=== PATIENT | female | born 1970 | race Caucasian/White ===

== ENCOUNTER 2017-05-05 10:06 | Inpatient (IN) | payer OTHER ==
[~2017-05-05] VITALS: Ht 165.1 cm; Wt 78.0 kg
[2017-05-05 10:13] VITALS: BP 120/46; PULSE 88; RESP 22; O2SAT 98
--- NOTE | 2017-05-05 10:21 | ED.REPORT ---
HPI-Abd Pain F 40 and Over Date of Service May 05, 2017 ED Provider: Janes Garzon MD A 46 year old female presents to the ED complaining of diffuse abdominal pain that began 2 days ago. Patient has been taking oxycodone for post-op lumbar surgery pain (04/29). She was discharged on 05/02 in good condition. Recent associated symptoms include vomiting, hematemesis, and watery diarrhea. Her last episode of emesis was a few hours prior to arrival. The pain has become increasingly worse since initial onset. She denies fever, hematochezia or dysuria. Nursing Notes Stated Complaint: LOWER BACK PAIN Chief Complaint: Female Abdominal Pain Nursing Notes Reviewed: Yes Allergies: Coded Allergies: No Known Allergies (Unverified , 05/05/17) General Time Seen by MD: 10:09 Chief Complaint Abdominal pain Hx Obtained From: Patient Arrived By: Walk-in Sudden in Onset?: No Onset Occurred: 3 days ago Symptom Duration: Since onset Progression since Onset: Gradually worsening Location: : Diffuse Quality: Painful Radiation: : Does not radiate Severity: Current: Severe Severity: Maximum: Severe Associated with: Reports: Vomiting, Denies: Dysuria, Fever Pertinent Negative: Pt denies other symptoms Recent Healthcare: Recent doctor visit, Recent hospitalization Risk Factors )( AAA Risk Stratification Risk factors reviewed Past Medical History Past Medical History None reported. Past Surgical History L4-L5 surgery Smoking History Unknown if Ever Smoker Social History Other Social History: Good social support, Local resident Ambulatory Status Independent Review of Systems Constitutional: Denies: Fever GI: Reports: Abdominal pain, Diarrhea, Hematemesis, Vomiting, Denies: Hematochezia Female: Denies: Dysuria Complete sys rev & neg: except as marked. Physical Exam Vital Signs Vital Signs (First) Date Time Temp Pulse Resp B/P Pulse Ox O2 Delivery O2 Flow Rate FiO2 05/05/17 10:13 36.6 88 22 120/46 98 Room Air Initial VS: Reviewed Head / Eyes: Atraumatic, Normocephalic, PERRL Neck: Supple, Non-tender, Full range of motion Extremities: Vascular intact, Neuro intact, No swelling, No tenderness Skin: Warm, Dry, No cyanosis Neurologic: Alert, Oriented, Nonfocal General/Constitutional: Awake, Alert Distress / Hydration: Positive: Distress moderate Respiratory / Chest: Atraumatic, No respiratory distress Cardiovascular: Peripheral circulation NL, Pulses = bilaterally Abdomen: Atraumatic, Soft, No guarding Tenderness/Guarding/Rebound: Positive: Rebound localized, Tender diffuse Back: Atraumatic Interpretation & Diagnostics Lab Results Interpretation Result Diagram: 05/05/17 1000 05/05/17 1000 Test 05/05/17 10:00 05/05/17 11:13 White Blood Count 25.9th/mm3 (3.8-10.1) Red Blood Count 4.55mil/mm3 (3.90-5.20) Hemoglobin 13.5g/dL (12.0-15.6) Hematocrit 37.9% (35.0-46.0) Mean Corpuscular Volume 83.3fL (81-100) Mean Corpuscular Hemoglobin 29.7pg (27.0-35.0) Mean Corpuscular Hemoglobin Concent 35.6% (32.0-37.0) Red Cell Distribution Width 14.0% (12.3-15.4) Platelet Count 453bil/L (150-400) Neutrophils (%) (Auto) 79.6% (40-74) Lymphocytes (%) (Auto) 9.5% (14-46) Monocytes (%) (Auto) 10.4% (4-12) Eosinophils (%) (Auto) 0% (0-5) Basophils (%) (Auto) 0.1% (0-3) Sodium Level 136mEq/L (134-144) Potassium Level 3.5mEq/L (3.5-5.2) Chloride Level 92mEq/L (97-108) Carbon Dioxide Level 22mmol/L (18-29) Blood Urea Nitrogen 23mg/dL (6-24) Creatinine 0.78mg/dL (0.57-1.00) Estimat Glomerular Filtration Rate 113mL/min (>59) Glucose Level 136mg/dL (60-99) Calcium Level 9.5mg/dL (8.5-10.1) Magnesium Level 1.8mg/dL (1.6-2.6) Total Bilirubin 0.7mg/dL (0.0-1.2) Aspartate Amino Transf (AST/SGOT) 20U/L (0-50) Alanine Aminotransferase (ALT/SGPT) 28U/L (0-32) Alkaline Phosphatase 80U/L (25-150) Total Protein 8.1g/dL (6.4-8.4) Albumin 4.2g/dL (3.4-5.0) Lipase 18U/L (13-60) Lactic Acid Level 1.3mmol/L (0.4-2.0) CT Abd / Pelvis Interpretation IMPRESSION: 1. Segmental of thickening of the colon involving the distal transverse colon, splenic flexure and proximal descending colon consistent with colitis. 2. Diverticulosis. No evidence for acute diverticulitis. 3. Small indeterminate hepatic hypodensities are present, probably cysts. Dictated by: Beatrice Bang M.D. on 05/05/2017 at 11:42 Study type: Abdominal CT IV contrast, Abdom CT oral contrast Interpretation / Wet Read by: Interpret - Radiologist Re-Eval/Medical Decision Med Decision/Clinical Course 46-year-old female who is one-week status post L3-L4 surgery presenting with nausea vomiting diarrhea and abdominal pain. CT confirms extensive colitis. White blood cell count is 27,000. Her vital signs are stable. Her renal function is stable. Discussed with infectious disease who thought most likely C. difficile colitis. Recommended admission for oral vancomycin. First dose given here. IV fluids given. Admitted to hospitalist. Re-Evaluation/Progress #1: Time of Eval: 12:08 Patient Status: Condition improved Re-Evaluation/Progress Note: Pt is infomed of the plan to admit for possible C. Diff. Re-Evaluation/Progress #2: Time of Eval: 13:24 Patient Status: Condition improved Re-Evaluation/Progress Note: All questions about the intended treatment plan are addressed. She understands and agrees with the plan to admit. Consultation #1: Referral / Consult Name: Martin Cox MD Call Returned at: 12:08 University Librarian: Agrees with eval, Agrees with plan Note: Infectious disease Consultation #2: Referral / Consult Name: Hua August MD Consulted With: Hospitalist Call Returned at: 13:22 University Librarian: Will see patient, Agrees with eval, Agrees with plan, Accepts admit Counseled Regarding: Diagnosis, Lab results, Need for admission Discharge & Departure Primary Impression: Colitis Disposition: ADMITTED TO HOSPITAL Discharge Condition All VS Reviewed: Yes Condition: Stable Scribe Attestation Portions of this note were transcribed by Shannan Mittal. I, Dr. Garzon personally performed the history, physical exam and medical decision-making; I reviewed and confirmed the accuracy of the information in the transcribed note. Signed by: Karen Reilly, 05/05/17 1324. Janes Garzon MD May 05, 2017 10:21 SHANNAN MITTAL May 05, 2017 10:41
[2017-05-05 10:33] LABS: BASOPHILS % (AUTO) 0.1 % (0-3); EOSINOPHILS % (AUTO) 0 % (0-5); MONOCYTES % (AUTO) 10.4 % (4-12); Mean Corpuscular Hemoglobin 29.7 pg (27.0-35.0); Mean Corpuscular Volume 83.3 fL (81-100); NEUTROPHILS % (AUTO) 79.6 % (40-74); Platelet Count 453 bil/L (150-400)
[2017-05-05 10:44] LABS: Magnesium 1.8 mg/dL (1.6-2.6)
[2017-05-05] MEDS ORDERED: 0.9% Sodium Chloride 1,000 ML IV ONE (10:50)
[2017-05-05 10:57] VITALS: BP 126/56; PULSE 86; O2SAT 97
[2017-05-05] MEDS: Ondansetron 2 mg/mL 2 mL Inj IVPUSH PRN ×2 (10:59→12:50)
--- NOTE | 2017-05-05 11:52 | DRSVH ---
PROCEDURE: CT ABDOMEN AND PELVIS WITH CONTRAST ([id number]) INDICATIONS: abd pain TECHNIQUE: After the administration of intravenous contrast, 5 mm thick sections acquired from the diaphragm to the symphysis. 5 mm coronal and sagittal reformats were acquired. For radiation dose reduction, the following was used: automated exposure control, adjustment of mA and/or kV according to patient siz e. COMPARISON: None. FINDINGS: Image quality: Excellent. ABDOMEN: Lung bases: Lung bases are clear. Heart size is normal. Solid organs: Small indeterminate hepatic hypodensities are present, probably cysts. Liver and spleen are normal in size and enhancement. Gallbladder is normal. Biliary system is non dilated. Pancrea s enhances normally. No adrenal nodules. Kidneys demonstrate normal size and enhancement, without h ydronephrosis. Peritoneum and bowel: There is colonic wall thickening involving the distal transverse colon and spl enic flexure, as well as the proximal descending colon, consistent with colitis. There are colonic di verticula. No evidence for active diverticulitis. Small bowel loops demonstrate normal wall thickness and caliber. No free fluid or air. Nodes and vessels: No retroperitoneal or mesenteric adenopathy by size criteria. Aorta and inferior vena cava are normal in size. Aortic atherosclerosis. Miscellaneous: No ventral hernias. PELVIS: Genitourinary: Bladder wall thickness is normal. Miscellaneous: No inguinal hernias or adenopathy. Bones: No suspicious bony lesions. No vertebral body compression fractures. IMPRESSION: 1. Segmental of thickening of the colon involving the distal transverse colon, splenic flexure and pr oximal descending colon consistent with colitis. 2. Diverticulosis. No evidence for acute diverticulitis. 3. Small indeterminate hepatic hypodensities are present, probably cysts. Dictated by: Beatrice Bang M.D. on 05/05/2017 at 11:42 Approved by: Beatrice Bang M.D. on 05/05/2017 at 11:50
[2017-05-05] MEDS ORDERED: Vancomycin 100 mg/mL Oral Solution PO ONE (12:10)
[2017-05-05 12:48] VITALS: BP 95/49; PULSE 79; RESP 20; O2SAT 98
[2017-05-05] MEDS ORDERED: Polyethylene Glycol (PEG) 17 Gm Powder PO PRN (13:20)
[2017-05-05] MEDS ORDERED: Alum-Mag Hydrox-Simeth 30 mL Suspension PO PRN ×2 (13:20→13:30)
[2017-05-05] MEDS ORDERED: Ondansetron 2 mg/mL 2 mL Inj IVPUSH PRN (13:30)
[2017-05-05 14:15] VITALS: BP 121/74; PULSE 73; RESP 22; O2SAT 99
[2017-05-05] MEDS ORDERED: Vancomycin 250 mg Oral Capsule PO SCH (14:30)
[2017-05-05] MEDS ORDERED: metroNIDAZOLE Inj 500 MG in IV Premix 1 EACH IV SCH (16:45)
--- NOTE | 2017-05-05 16:45 | CONS ---
[address] [address] CONSULTATION REPORT PATIENT: PAM GUEVARA : 1970 MR#: [id number] ADMIT: 05/05/2017 JOB ID: [id number] DATE OF SERVICE: 05/05/[address] Guillermo August for this timely consult. REASON FOR CONSULTATION: Probable colitis. HISTORY OF PRESENT ILLNESS: The patient is a 46-year-old woman with fairly limited past medical history. She reports that aside from smoking she has been very healthy and takes no medicines on an ongoing basis. 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 She reports that as part of this surgery no hardware was installed but some nonspecified trimming or fixing of a disk or two was performed. Following her lumbar surgery, she states she developed nausea and vomiting but they nonetheless discharged her two days later on or about the . She was not feeling well at the time of discharge and had some nausea and some vomiting, but was able to keep some food down. Most recently, within the past 48 hours or so, she began to experience more in the way of nausea and vomiting with substernal pain secondary to recurrent vomiting and retching. Eventually today, she started to develop additional watery diarrhea in association with increasing abdominal pain, nausea, and vomiting to the point that she literally could not stand it, and she and her decided to call an ambulance to bring her here to the hospital. She states that really she was never well though after the surgery in that she did have some degree of nausea and vomiting which only intensified after discharge. She reports she has not had much at all in the way of fevers, chills or sweats, however, and denies any cough or shortness of breath. She states that she was told while she was in [place] as an inpatient that she had irregularity on her EKG, but she was not told anymore about it. She now tells me that she is having some degree of chest pain or pressure in association with all this nausea, vomiting and diarrhea. She recently quit smoking. PAST MEDICAL HISTORY: Chronic low back pain. SOCIAL HISTORY: The patient drinks one or two alcohol drinks per year at her 's annual work libertarian and otherwise is a teetotaler. She has been a smoker since her teenage years, but she quit immediately preop before the back surgery. She lives in [place], [place] with her and a 20-year-old son and an 8-year-old grandson. FAMILY HISTORY: Entirely negative for tuberculosis including 1st and 2nd-degree relatives. REVIEW OF SYSTEMS: Was difficult because the patient has in extreme discomfort. She states she has no headache, no visual change. No sore throat. She does have substernal pain because of constant retching and burning. She states she has no significant cough or shortness of breath but she does have an ill-defined sensation of chest tightness. She is vomiting every few hours and is constantly nauseated. She reports loose, watery diarrhea that started within the past 24 hours, and she has vague and diffuse abdominal pain. She has no pain at the site of her recent back surgery. She has no complaints referable to her extremities. She notes she has had some dysuria, and she feels when she urinates as if her urine is very concentrated as she has been urinating very little in the last day or two. Remainder of the review of systems is negative. PHYSICAL EXAMINATION: Reveals an afebrile woman. Temp 36.4, pulse 73, respiratory rate 22, blood pressure 121/74, saturating well on room air. She is literally writhing about the bed, holding her head in her hands and appears in tremendous discomfort to the point she can almost not interact. Her examination of the head reveals no trauma. The eyes are without conjunctivitis. The oral cavity is free of thrush or hairy leukoplakia. The neck is very supple. Lungs are clear posteriorly. Cardiac tones: Regular rate and rhythm this afternoon with no murmurs, rubs or gallops heard. The abdomen is slightly distended and diffusely tender. Examination of the back reveals Steri-Strips over her lumbar spine wound. I tried to remove these, but just a simple active pulling on the Steri-Strips caused the patient to cry out in pain and refuse to allow me to do any more. She does not have a Reyes catheter. Her extremities are all strong, and she has no focal neurologic deficits. No skin rashes noted. No synovitis and her mental status, as noted, is normal. LABORATORIES: Include white count done in the ED 26,000, platelet count 453,000, white count is 80% segs. Creatinine 0.78. LFTs are normal. Lipase is normal. Micro studies include negative blood cultures. The CT of the abdomen which was done in the ED shows segmental thickening of the colon involving the transverse and proximal descending colon consistent with colitis. In addition, there is diverticulosis without evidence of diverticulitis. I have personally reviewed these films and agree with the interpretation of colitis. IMPRESSION: This is a case of a patient who underwent elective back surgery just six days ago in [place]. Postop, she developed nausea and vomiting which may have been due to toxicity from pain medicines though it is not entirely clear. The patient reported at the time she left the hospital in [place] on Saturday, she was still taking pain meds and still having intermittent nausea and vomiting. This got much, much worse over the last 48 hours with intractable nausea, vomiting, and then the gradual onset of watery diarrhea. The patient was not sent home from [place] with any antibiotics, but was only given pain meds and antiemetics. I note that there are many reports in the literature, and I have seen cases, where patients develop Clostridium difficile colitis after a single preoperative dose of antibiotics. This is certainly a possibility here. The patient has no one unusual fluid or water exposures and no particular reason to think she would have another cause of colitis though is remotely possible. Also possible is that she has healed from a systemic infection perhaps involving her back incision, but one would expect more in the way of local findings around the back incision or at least pain in that area if, in fact, she had a very serious wound infection developing. RECOMMENDATIONS: 1. This case discussed with Dr. August. 2. I agree with ordering stool PCR panel which will include C. diff. 3. I will go ahead and get the patient started on vancomycin 125 p.o. q.i.d. 4. Because of the patient's atypical chest pain, I have ordered an EKG. 5. I plan to text Dr. August as I think she needs to get started on some IV fluids sooner rather than later as she does appear quite dehydrated at this time.
[2017-05-05 17:14] LABS: APPEARANCE,URINE CLEAR (CLEAR,HAZY); COLOR,URINE YELLOW (YELLOW); OCCULT BLOOD,URINE SMALL (NEGATIVE); PH,URINE 8.5 (5.0-8.0); UROBILINOGEN,URINE NORMAL (NORMAL)
[2017-05-05] MEDS: 0.9% NaCl + KCl 20 mEq/L 1,000 ML IV SCH (17:14)
[2017-05-05] MEDS: Promethazine Inj 25 MG in Dextrose 5%-Pha MIX 50 ML IV PRN (17:17)
--- NOTE | 2017-05-05 19:28 | NUR ---
Admission to 1018 Pt arrived at 1415 from ER, report taken from [place]. Pt c/o pain 10/10 with intermittent nausea not controlled with Zofran. Per report, pt was stable in ER and transfer increased discomfort. Pt becomes increasingly painful with staff interaction and questioning. Attempted to give PO Tylenol and pt started retching, only able to take one pill. MD notified, order for Phenergan and IV Morphine recieved. Pt refused Morphine at this time and Phenergan given. Nausea well controlled, pt sleeping.
[2017-05-05] MEDS: Vancomycin 250 mg Oral Capsule PO SCH (19:42)
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
[2017-05-05] MEDS ORDERED: Pantoprazole 4 mg/mL 10 mL Inj IVPUSH SCH (20:50)
[2017-05-05 21:01] VITALS: BP 103/59; PULSE 61; RESP 18; O2SAT 98
[2017-05-05] MEDS: Pantoprazole 40 mg ER24 Tablet PO SCH (21:54)
[2017-05-06 01:07] VITALS: BP 109/62; PULSE 65; RESP 20; O2SAT 98
[2017-05-06] MEDS: 0.9% NaCl + KCl 20 mEq/L 1,000 ML IV SCH ×3 (01:41→16:30)
[2017-05-06] MEDS: Ondansetron 2 mg/mL 2 mL Inj IVPUSH PRN (01:52)
[2017-05-06] MEDS: Vancomycin 250 mg Oral Capsule PO SCH ×5 (02:00→20:38)
[2017-05-06] MEDS: metroNIDAZOLE Inj 500 MG in IV Premix 1 EACH IV SCH ×3 (02:37→20:38)
[2017-05-06 05:38] LABS: BASOPHILS % (AUTO) 0.1 % (0-3); EOSINOPHILS % (AUTO) 2.3 % (0-5); MONOCYTES % (AUTO) 8.2 % (4-12); Mean Corpuscular Hemoglobin 29.1 pg (27.0-35.0); Mean Corpuscular Volume 87.7 fL (81-100); NEUTROPHILS % (AUTO) 68.5 % (40-74); Platelet Count 314 bil/L (150-400)
[2017-05-06 05:39] VITALS: BP 117/65; PULSE 68; RESP 18; O2SAT 97
[2017-05-06 06:12] LABS: Magnesium 1.9 mg/dL (1.6-2.6)
--- NOTE | 2017-05-06 06:12 | NUR ---
pain c/o back and abdominal pain. Rated 10 / tearful. IV Morphine 2mg's given with moderate effect. K-pad provided. Patient drowsy and able to sleep intermittently overnight. IVF infusing 125/hr. UOP dark gracie. VSS. Incision with steri-strips intact. No erythemia noted. Ambulated with FWW to bathroom, gait steady but slow. Care ongoing.
[2017-05-06] MEDS: Pantoprazole 40 mg ER24 Tablet PO SCH ×2 (07:33→16:47)
[2017-05-06 09:06] VITALS: BP 111/55; PULSE 60; O2SAT 99
[2017-05-06] MEDS: Promethazine Inj 25 MG in Dextrose 5%-Pha MIX 50 ML IV PRN (11:02)
[2017-05-06] MEDS ORDERED: 0.9% Sodium Chloride 250 ML ONE (11:05)
[2017-05-06 12:32] VITALS: BP 108/48; PULSE 79; RESP 18; O2SAT 96
--- NOTE | 2017-05-06 16:27 | PROG NOTE ---
[address] [address] PROGRESS NOTE PATIENT: PAM GUEVARA : 1970 MR#: [id number] ADMIT: 05/05/2017 JOB ID: [id number] DATE: 05/06/2017 REASON FOR FOLLOWUP: C. difficile colitis. INTERVAL HISTORY: Recall this is a 46-year-old woman who had elective back surgery in [place] on April 29. She developed postop nausea and vomiting but was discharged anyway and then at home developed diarrhea in addition to ongoing nausea and vomiting as well as systemic toxicity and was admitted to this facility yesterday. Overnight, she has remained about the same, though she has not had significant fever or chills. She has no significant respiratory complaint. She has back pain, probably due to nausea, vomiting and diarrhea she believes in the postop period and she had diarrhea three times overnight as well as continued nausea and some anorexia. PHYSICAL EXAMINATION: Reveals an afebrile and slightly better overall appearing woman. Temperature 36.8, pulse 79, respiratory rate 18, blood pressure 108/48. She is saturating well on room air. Examination of the oral cavity unremarkable. Lungs are clear. Cardiac tones negative. Abdomen still with some moderate tenderness, left upper and left lower quadrants. No duyen peritoneal signs but tender. No new skin rash. Her back incision is covered by Steri-Strips but the parts one can see look uninfected. LABORATORIES: Include white count which has gone from 26,000 to 16. The diff has completely normalized, however, and the platelet count which had been elevated is also normalized. Creatinine 0.68. LFTs normal. Lipase 17. Urinalysis without significant pyuria. Stool was positive for C. difficile. Blood cultures, urine cultures negative. No new imaging to add to the abdominal CT which showed colitis. IMPRESSION: This patient has a classic presentation of Clostridium difficile colitis following preoperative antibiotics given for an elective back surgery. There are many case reports in the literature and I have seen cases now of patients who develop sometimes life-threatening Clostridium difficile following a single preoperative dose of Ancef or related compound and that appears to be what happened here. RECOMMENDATIONS: 1. The patient is on oral vancomycin and I think that is probably all that is required. I note that the Flagyl has been added, but there is little empiric evidence to suggest a benefit in those that are able to take oral medications, so the Flagyl is more or less elective at this point. 2. The course of vancomycin should be 10-14 days. 3. As the patient continues to improve I think she can probably discharge in the next day or two. 4. It may be reasonable to have physical therapy evaluate this patient to see how she does with a walker as she states she has had to use that to get around since her surgery.
--- NOTE | 2017-05-06 17:18 | NUR ---
Nausea / Pain At beginning of shift pt crying in pain and retching, but no emesis. C/o severe abdominal cramping that was radiating around the left flank to her back. Administered IV Phenergan for nausea and 2 mg IVP morphine for pain. Pt later reported that the nausea was much decreased. Pt consistently reports pain at 9/10, even after administration of morphine. Pt appeared more comfortable early this afternoon, but now reports her pain and cramping is increasing again. Will speak to hospitalist about possibly changing her pain medication.
[2017-05-06] MEDS: oxyCODONE-Acetamin 5-325 mg Tablet PO PRN ×2 (20:38→20:50)
[2017-05-06 21:38] VITALS: BP 90/50; PULSE 72; RESP 18; O2SAT 98
--- NOTE | 2017-05-06 23:46 | PCM.PNMED ---
Subjective Date of Service May 06, 2017 Subjective Patient states she is still feeling poorly. However, she is much more awake and alert today. Patient's nausea is better controlled with Phenergan. Exam Vital Signs Vital Sign - Last Date Time Temp Pulse Resp B/P Pulse Ox O2 Delivery O2 Flow Rate FiO2 05/06/17 21:38 36.9 72 18 90/50 98 Room Air Intake and Output 05/05/17 05/05/17 05/06/17 Cumulative From/Thru 15:00 23:00 07:00 05/05/17 19:34 - 05/06/17 06:37 Intake Total 240 ml 1970 ml 2210 ml Output Total 150 ml 600 ml 750 ml Balance 90 ml 1370 ml 1460 ml Intake Oral 240 ml 620 ml 860 ml IV Total 1350 ml 1350 ml Output Urine Total 150 ml 600 ml 750 ml # Bowel Movements 0 0 Exam General: Patient appears much more comfortable today. HEENT: Head is atraumatic and normocephalic. Eyes: Pupils are equally round and reactive to light and accommodation. Extraocular muscles are intact. Sclera are white, anicteric. Subconjunctival mucosa is pink. Ears and nose are unremarkable. Oropharynx: There is no mucosal lesions, there is no thrush, there is no pharyngitis. Neck: Is supple, there are no nodes, or masses or tenderness. Chest: Is clear to auscultation and percussion. There are no rales, rhonchi, wheezes or rubs. Heart: Rate, rhythm is regular. There is no murmur, rub or gallop. Abdomen: Good bowel sounds are present. Abdomen is soft, with nonspecific tenderness anteriorly. There is less CVA tenderness on the right with some light percussion. There is no organomegaly or masses were appreciated. Extremities: Are symmetrical and well perfused. There is no edema, there is no cellulitis, no rash. Neurologic: There are no focal neurological deficits. Cranial nerves II through XII are intact. There are no sensory or motor deficits. Psychiatric: Patients mood is calm and shows no sign of agitation. Genital: Deferred Rectal: Deferred Lab and Diagnostics Result Diagram: 05/06/17 0525 05/06/17 05 Microbiology Blood urine and stool studies are pending. X-Rays, CTs and MRIs PROCEDURE: CT ABDOMEN AND PELVIS WITH CONTRAST ([id number]) INDICATIONS: abd pain TECHNIQUE: After the administration of intravenous contrast, 5 mm thick sections acquired from the diaphragm to the symphysis. 5 mm coronal and sagittal reformats were acquired. For radiation dose reduction, the following was used: automated exposure control, adjustment of mA and/or kV according to patient size. COMPARISON: None. FINDINGS: Image quality: Excellent. ABDOMEN: Lung bases: Lung bases are clear. Heart size is normal. Solid organs: Small indeterminate hepatic hypodensities are present, probably cysts. Liver and spleen are normal in size and enhancement. Gallbladder is normal. Biliary system is non dilated. Pancreas enhances normally. No adrenal nodules. Kidneys demonstrate normal size and enhancement, without hydronephrosis. Peritoneum and bowel: There is colonic wall thickening involving the distal transverse colon and splenic flexure, as well as the proximal descending colon, consistent with colitis. There are colonic diverticula. No evidence for active diverticulitis. Small bowel loops demonstrate normal wall thickness and caliber. No free fluid or air. Nodes and vessels: No retroperitoneal or mesenteric adenopathy by size criteria. Aorta and inferior vena cava are normal in size. Aortic atherosclerosis. Miscellaneous: No ventral hernias. PELVIS: Genitourinary: Bladder wall thickness is normal. Miscellaneous: No inguinal hernias or adenopathy. Bones: No suspicious bony lesions. No vertebral body compression fractures. IMPRESSION: 1. Segmental of thickening of the colon involving the distal transverse colon, splenic flexure and proximal descending colon consistent with colitis. 2. Diverticulosis. No evidence for acute diverticulitis. 3. Small indeterminate hepatic hypodensities are present, probably cysts. Dictated by: Beatrice Bang M.D. on 05/05/2017 at 11:42 Approved by: Beatrice Bang M.D. on 05/05/2017 at 11:50 Assessment & Plan Patient is a 46-year-old female who reportedly injured her back 4 years ago while working at [employer] in the [employer] department. She reportedly filed a Workmen's Compensation claim and was referred to a chiropractor in [place]. The patient states that she has been trying to have surgery approved on her back by Workmen's Compensation for the last 4 years now. Meanwhile she has been receiving for years worth of chiropractic treatments. Earlier this year she was referred to a physician in [place] when turned referred her to an neurological surgeon by the name of Dr. Almendarez. Dr. Almendarez evaluated the patient and obtained approval from [facility] to perform surgery and the patient's spine in the area of her L4 and L5 vertebral bodies. The patient does not know what type of surgery was performed. She does not know if it was a discectomy or effusion. However, she does state that recent x-rays in the emergency room here showed no hardware involved. Prior to her discharge from [facility] for approximately 3 days patient had nausea and some vomiting. After discharge home her nausea and vomiting continued. The patient thought this might be due to a side effect of her oxycodone pills and she stopped them after taking them for a total of 5 days, 3 in the hospital and 2 at home. However, she continued to have emesis which was light colored green which then became darker and then came went back to light-colored green again. Her encouraged her to go to the hospital, however she felt that the symptoms would pass. Unfortunately for the patient, her symptoms never improved and they only worsened. Today she started having watery diarrhea for the first time and told her that she could not take it anymore is when her called paramedics who brought the patient to [facility] emergency room. The patient was evaluated by Dr. Janes Garzon and was felt to have intractable nausea and vomiting a CT scan of the abdomen and pelvis was ordered which showed segmental thickening of the colon involving the distal transverse colon, splenic flexure and proximal descending colon consistent with colitis. The patient did have diverticulosis but no evidence for acute diverticulitis there were some small indeterminate hepatic hypodensities present which were probable cyst. Due to the colitis the patient was given a liter fluid given Zofran and her white blood cell count was found to be over 25,000 the patient therefore was admitted to the hospital service for further evaluation and treatment. # Gastroenteritis/colitis, present at the time of admission secondary to C. difficile infection. Active with nausea, vomiting and diarrhea - Infectious disease was consulted and will continue vancomycin and IV Flagyl for now. - Continue IV hydration. - Continue Zofran and Phenergan ordered to alternate as antiemetics. # Dehydration, present at time of admission. Active and secondary to above. - We will continue IV hydration which will include normal saline with 20 mg of potassium chloride to replete her potassium stores which are low secondary to above nausea and vomiting. - Continue to monitor fluid status and electrolytes closely and replete as needed # Marketed leukocytosis - Secondary to infection - Secondary to dehydration # Hypokalemia, presence and admission - Potassium added to normal saline - Continue to monitor electrolytes daily. # Hypomagnesemia, present at time of admission. Active - We will replace with 4 g of IV magnesium sulfate today - Continue to monitor and abated daily basis due to persistent nausea and vomiting # History tobacco use - Patient recently quit just prior to her surgery 04/29/2017. # Recent spinal surgery in the area of L4-L5 by Dr. Almendarez at the [facility] in [place], [place]. - Patient is unable to tell me what type of surgery she had. - Need for surgery was a result of her work related injury Disposition: Patient will likely be here another 48-72 hours with continued treatment of the above problems. Appreciate Dr. Cox's time and expertise. Pain Evaluation: Adequate Pain Control GI Prophylaxis: Proton Pump Inhibitor VTE Prophylaxis: Sub-Q Enoxaparin VTE Mechanical Devices: Intermittant Pneumatic CD Resuscitation Status: CPR: Attempt Resuscitation Hua August MD May 06, 2017 23:46
[2017-05-07] MEDS ORDERED: Vancomycin 250 mg Oral Capsule PO ONE (00:50)
[2017-05-07] MEDS: 0.9% NaCl + KCl 20 mEq/L 1,000 ML IV SCH ×3 (02:20→16:27)
[2017-05-07] MEDS: oxyCODONE-Acetamin 5-325 mg Tablet PO PRN ×3 (02:40→15:39)
[2017-05-07] MEDS: metroNIDAZOLE Inj 500 MG in IV Premix 1 EACH IV SCH ×3 (03:30→23:29)
[2017-05-07] MEDS: Vancomycin 250 mg Oral Capsule PO SCH ×4 (04:34→23:30)
[2017-05-07 05:46] VITALS: BP 91/54; PULSE 69; RESP 18; O2SAT 96
--- NOTE | 2017-05-07 06:28 | NUR ---
Pain At the beginning of shift, patient appeared to be struggling with her pain and cramping of her abdomen and back while receiving Morphine 2mg. Patient refused her Vancomycin initially, stating she didn't think she could hold it down. Several hours later Patient stated she thought she was feeling well enough to take the antibiotics and was given the medication. Patient later agreed to try one Percocet and stated she felt it managed her pain better than the Morphine she had been taking. Patients peripheral IV began leaking late in shift and it was removed. A new IV was started in the patients left hand.
[2017-05-07 06:34] LABS: BASOPHILS % (AUTO) 0.3 % (0-3); EOSINOPHILS % (AUTO) 3.1 % (0-5); MONOCYTES % (AUTO) 7.7 % (4-12); Mean Corpuscular Hemoglobin 28.7 pg (27.0-35.0); Mean Corpuscular Volume 87.5 fL (81-100); NEUTROPHILS % (AUTO) 61.6 % (40-74); Platelet Count 280 bil/L (150-400)
[2017-05-07 06:46] LABS: Magnesium 1.7 mg/dL (1.6-2.6)
[2017-05-07] MEDS: Ondansetron 2 mg/mL 2 mL Inj IVPUSH PRN ×3 (10:15→20:54)
[2017-05-07] MEDS: Pantoprazole 40 mg ER24 Tablet PO SCH ×2 (10:21→17:10)
--- NOTE | 2017-05-07 15:17 | PROG NOTE ---
[address] [address] PROGRESS NOTE PATIENT: PAM GUEVARA : 1970 MR#: [id number] ADMIT: 05/05/2017 JOB ID: [id number] DATE: 05/07/2017 REASON FOR FOLLOWUP: C. difficile colitis. INTERVAL HISTORY: In general, the patient feels better but she continues to have a great deal of nausea and even occasionally vomiting. She notes that she has very little appetite, no additional fevers or chills. No cough, shortness of breath. PHYSICAL EXAMINATION: Reveals an afebrile woman, no acute distress. Temp 36.9, pulse 68, respiratory rate 18, blood pressure 91/54, saturating 96% on room air. She is in no obvious discomfort. Lungs are clear. Cardiac tones: Regular rate and rhythm. Abdomen slightly distended, slightly tender, more so on the left lower quadrant than elsewhere. Minimal edema in hands and feet. LABORATORIES: Include a white count which has gone from 26,000 to 10. Differential is completely normal. Creatinine 0.52, albumin 2.6. Urinalysis 6-10 white cells. No new studies beyond the positive stool for C. difficile. IMPRESSION: This patient is improving with respect to her Clostridium difficile. Renal function remained stable. Her white count has normalized and she is less toxic. Some of her nausea and vomiting may in fact be due to the Flagyl she has received in addition to her metronidazole and we could probably consider stopping the metronidazole as the patient seems to be out of any danger from her C. difficile. RECOMMENDATIONS: 1. Oral vancomycin 125-250 q.i.d. for 10-14 days. 2. The Flagyl could be discontinued at any time. 3. I suspect the patient will be ready for discharge tomorrow, and in view of that, ID will go ahead and sign off at this time.
[2017-05-07 16:31] VITALS: BP 114/58; PULSE 75; RESP 18; O2SAT 98
--- NOTE | 2017-05-07 18:32 | NUR ---
Nausea, Pain Patient continues to have some pain to the abdomen and back this shift, as well as intermittent nausea. Patient states that pain better controlled this shift with oral meds. Patient states anti-nausea medication is effective in helping with nausea. Care is ongoing. Addendum: 05/07/17 at 1907 by BRIAN ROBERTS RN Nausea, Emesis At end of shift patient reports some emesis after ambulating to the bathroom and having bowel movement. Care is ongoing.
[2017-05-07 20:02] VITALS: BP 121/65; PULSE 70; RESP 18; O2SAT 98
[2017-05-07] MEDS ORDERED: Ondansetron 2 mg/mL 2 mL Inj IVPUSH ONE (21:20)
--- NOTE | 2017-05-07 22:10 | NUR ---
Report received from Nhung Cain. Pt sleeping and appears comfortable at this time.
--- NOTE | 2017-05-07 22:34 | PCM.PNMED ---
Subjective Date of Service May 07, 2017 Subjective The patient states she still does not feel well at all and continues status for IV narcotics [id number] due to her abdominal pain. She was eating at the time of my visit which she was not able to do when she was first admitted. She has no new complaints Exam Vital Signs Vital Sign - Last Date Time Temp Pulse Resp B/P Pulse Ox O2 Delivery O2 Flow Rate FiO2 05/07/17 20:02 36.8 70 18 121/65 98 Room Air Intake and Output 05/06/17 05/06/17 05/07/17 Cumulative From/Thru 15:00 23:00 07:00 05/05/17 19:34 - 05/07/17 06:48 Intake Total 2601 ml 568 ml 5379 ml Output Total 750 ml Balance 2601 ml 568 ml 4629 ml Intake Oral 1370 ml 2230 ml IV Total 1231 ml 568 ml 3149 ml Output Urine Total 750 ml # Voids 3 3 # Bowel Movements 2 2 Exam General: Patient appears much more comfortable today objectively, as she is sitting up on side of her bed eating. She ate most of her macaroni and cheese and was working on other food. She denies feeling much better. And is asking for narcotics [id number].. HEENT: Head is atraumatic and normocephalic. Eyes: Pupils are equally round and reactive to light and accommodation. Extraocular muscles are intact. Sclera are white, anicteric. Subconjunctival mucosa is pink. Ears and nose are unremarkable. Oropharynx: There is no mucosal lesions, there is no thrush, there is no pharyngitis. Neck: Is supple, there are no nodes, or masses or tenderness. Chest: Is clear to auscultation and percussion. There are no rales, rhonchi, wheezes or rubs. Heart: Rate, rhythm is regular. There is no murmur, rub or gallop. Abdomen: Good bowel sounds are present. Abdomen is obese, soft, with nonspecific tenderness anteriorly. There is no CVA tenderness on percussion. There is no organomegaly or masses appreciated. Extremities: Are symmetrical and well perfused. There is no edema, there is no cellulitis, no rash. Neurologic: There are no focal neurological deficits. Cranial nerves II through XII are intact. There are no sensory or motor deficits. Psychiatric: Patients mood is calm and shows no sign of agitation. Genital: Deferred Rectal: Deferred Lab and Diagnostics Result Diagram: 05/07/1736 05/07/1736 Microbiology Blood urine and stool studies are pending. X-Rays, CTs and MRIs PROCEDURE: CT ABDOMEN AND PELVIS WITH CONTRAST ([id number]) INDICATIONS: abd pain TECHNIQUE: After the administration of intravenous contrast, 5 mm thick sections acquired from the diaphragm to the symphysis. 5 mm coronal and sagittal reformats were acquired. For radiation dose reduction, the following was used: automated exposure control, adjustment of mA and/or kV according to patient size. COMPARISON: None. FINDINGS: Image quality: Excellent. ABDOMEN: Lung bases: Lung bases are clear. Heart size is normal. Solid organs: Small indeterminate hepatic hypodensities are present, probably cysts. Liver and spleen are normal in size and enhancement. Gallbladder is normal. Biliary system is non dilated. Pancreas enhances normally. No adrenal nodules. Kidneys demonstrate normal size and enhancement, without hydronephrosis. Peritoneum and bowel: There is colonic wall thickening involving the distal transverse colon and splenic flexure, as well as the proximal descending colon, consistent with colitis. There are colonic diverticula. No evidence for active diverticulitis. Small bowel loops demonstrate normal wall thickness and caliber. No free fluid or air. Nodes and vessels: No retroperitoneal or mesenteric adenopathy by size criteria. Aorta and inferior vena cava are normal in size. Aortic atherosclerosis. Miscellaneous: No ventral hernias. PELVIS: Genitourinary: Bladder wall thickness is normal. Miscellaneous: No inguinal hernias or adenopathy. Bones: No suspicious bony lesions. No vertebral body compression fractures. IMPRESSION: 1. Segmental of thickening of the colon involving the distal transverse colon, splenic flexure and proximal descending colon consistent with colitis. 2. Diverticulosis. No evidence for acute diverticulitis. 3. Small indeterminate hepatic hypodensities are present, probably cysts. Dictated by: Beatrice Bang M.D. on 05/05/2017 at 11:42 Approved by: Beatrice Bang M.D. on 05/05/2017 at 11:50 Assessment & Plan Patient is a 46-year-old female who reportedly injured her back 4 years ago while working at [employer] in the [employer] department. She reportedly filed a Workmen's Compensation claim and was referred to a chiropractor in [place]. The patient states that she has been trying to have surgery approved on her back by Workmen's Compensation for the last 4 years now. Meanwhile she has been receiving for years worth of chiropractic treatments. Earlier this year she was referred to a physician in [place] when turned referred her to an neurological surgeon by the name of Dr. Almendarez. Dr. Almendarez evaluated the patient and obtained approval from workman's comp to perform surgery and the patient's spine in the area of her L4 and L5 vertebral bodies. The patient does not know what type of surgery was performed. She does not know if it was a discectomy or effusion. However, she does state that recent x-rays in the emergency room here showed no hardware involved. Prior to her discharge from [facility] for approximately 3 days patient had nausea and some vomiting. After discharge home her nausea and vomiting continued. The patient thought this might be due to a side effect of her oxycodone pills and she stopped them after taking them for a total of 5 days, 3 in the hospital and 2 at home. However, she continued to have emesis which was light colored green which then became darker and then came went back to light-colored green again. Her encouraged her to go to the hospital, however she felt that the symptoms would pass. Unfortunately for the patient, her symptoms never improved and they only worsened. Today she started having watery diarrhea for the first time and told her that she could not take it anymore is when her called paramedics who brought the patient to [facility] emergency room. The patient was evaluated by Dr. Janes Garzon and was felt to have intractable nausea and vomiting a CT scan of the abdomen and pelvis was ordered which showed segmental thickening of the colon involving the distal transverse colon, splenic flexure and proximal descending colon consistent with colitis. The patient did have diverticulosis but no evidence for acute diverticulitis there were some small indeterminate hepatic hypodensities present which were probable cyst. Due to the colitis the patient was given a liter fluid given Zofran and her white blood cell count was found to be over 25,000 the patient therefore was admitted to the hospital service for further evaluation and treatment. # Gastroenteritis/colitis, present at the time of admission secondary to C. difficile infection. Active with nausea, vomiting and diarrhea - Infectious disease was consulted and will continue vancomycin and IV Flagyl for now. - Continue IV hydration. - Continue Zofran and Phenergan ordered to alternate as antiemetics. # Dehydration, present at time of admission. Active and secondary to above. - We will continue IV hydration which will include normal saline with 20 mg of potassium chloride to replete her potassium stores which are low secondary to above nausea and vomiting. - Continue to monitor fluid status and electrolytes closely and replete as needed # Marked leukocytosis - Secondary to infection - Secondary to dehydration # Hypokalemia, presence and admission. Replaced - Potassium added to normal saline - Continue to monitor electrolytes daily. # Hypomagnesemia, present at time of admission. Active - We have replaced - Continue to monitor and abated daily basis due to persistent nausea and vomiting # History tobacco use - Patient recently quit just prior to her surgery 04/29/2017. # Recent spinal surgery in the area of L4-L5 by Dr. Almendarez at the [facility] in [place], [place]. - Patient is unable to tell me what type of surgery she had. - Need for surgery was a result of her work related injury Disposition: Patient will likely be here another 48 hours with continued treatment of the above problems. Appreciate Dr. Cox's time and expertise. We will begin to taper off IV narcotics. Pain Evaluation: Adequate Pain Control GI Prophylaxis: Proton Pump Inhibitor VTE Prophylaxis: Sub-Q Enoxaparin VTE Mechanical Devices: Intermittant Pneumatic CD Resuscitation Status: CPR: Attempt Resuscitation Hua August MD May 07, 2017 22:34
[2017-05-08] MEDS: Promethazine Inj 25 MG in Dextrose 5%-Pha MIX 50 ML IV PRN (01:12)
[2017-05-08] MEDS: Vancomycin 250 mg Oral Capsule PO SCH ×4 (03:41→22:06)
[2017-05-08] MEDS: Ondansetron 2 mg/mL 2 mL Inj IVPUSH PRN ×2 (03:41→08:22)
[2017-05-08] MEDS: oxyCODONE-Acetamin 5-325 mg Tablet PO PRN ×4 (03:41→22:07)
[2017-05-08 04:48] VITALS: BP 99/62; PULSE 65; RESP 18; O2SAT 96
[2017-05-08 05:49] LABS: BASOPHILS % (AUTO) 0.3 % (0-3); EOSINOPHILS % (AUTO) 3.2 % (0-5); MONOCYTES % (AUTO) 7.6 % (4-12); Mean Corpuscular Hemoglobin 28.6 pg (27.0-35.0); Mean Corpuscular Volume 87.7 fL (81-100); NEUTROPHILS % (AUTO) 57.9 % (40-74); Platelet Count 284 bil/L (150-400)
[2017-05-08 06:16] LABS: Magnesium 1.7 mg/dL (1.6-2.6)
[2017-05-08] MEDS: 0.9% NaCl + KCl 20 mEq/L 1,000 ML IV SCH ×3 (06:30→18:04)
[2017-05-08] MEDS: metroNIDAZOLE Inj 500 MG in IV Premix 1 EACH IV SCH (06:31)
--- NOTE | 2017-05-08 06:39 | NUR ---
Nausea/Pain Pain managed with one dose IV morphine and one dose PO percocet. Due to nausea and scheduled PO meds pt was given promethazine IV with good effect, and was able to tolerate PO percocet with no nausea or vomiting. IV NS w/Kcl infuisng and pt states IV site tender/painful, reduced rate to 80ml/hr and included 30ml/hr NS to dilute further, Less comments of pain at IV site. IV ABX tolerated through the rest of the shift. Care continues
[2017-05-08] MEDS: Pantoprazole 40 mg ER24 Tablet PO SCH ×2 (08:20→18:04)
[2017-05-08] MEDS ORDERED: Magnesium Sulf 4 Gm/100 mL H2O 4 GM in IV Premix 1 EACH IV ONE (09:20)
[2017-05-08 15:00] VITALS: BP 110/62; PULSE 73; RESP 16; O2SAT 99
--- NOTE | 2017-05-08 18:30 | NUR ---
Nausea, Pain Patient continues to have intermittent nausea and abdominal pain this shift. Patient states pain and nausea decreased from yesterday, using less of ordered pain and nausea medication. Care is ongoing.
[2017-05-08 19:56] VITALS: BP 130/80; PULSE 63; RESP 18; O2SAT 98
--- NOTE | 2017-05-08 22:26 | PCM.PNMED ---
Subjective Date of Service May 08, 2017 Subjective The patient is feeling a little bit better. However she would like to taper herself off narcotics she really does not know how she feels. She also had vomiting last night which requires Zofran and Phenergan infusions. She had 2 bouts of diarrhea today and she does not feel up to going home at this time. She has no other new complaints. Exam Vital Signs Vital Sign - Last Date Time Temp Pulse Resp B/P Pulse Ox O2 Delivery O2 Flow Rate FiO2 05/08/17 19:56 36.9 63 18 130/80 98 Room Air Intake and Output 05/07/17 05/07/17 05/08/17 Cumulative From/Thru 15:00 23:00 07:00 05/05/17 19:34 - 05/08/17 06:34 Intake Total 600 ml 1125 ml 1980 ml 9084 ml Output Total 450 ml 450 ml 1500 ml 3150 ml Balance 150 ml 675 ml 480 ml 5934 ml Intake Oral 600 ml 675 ml 880 ml 4385 ml IV Total 450 ml 1100 ml 4699 ml Output Urine Total 450 ml 450 ml 1500 ml 3150 ml # Voids 3 # Bowel Movements 1 0 3 Exam General: Patient is in no apparent distress. HEENT: Head is atraumatic and normocephalic. Eyes: Pupils are equally round and reactive to light and accommodation. Extraocular muscles are intact. Sclera are white, anicteric. Subconjunctival mucosa is pink. Ears and nose are unremarkable. Oropharynx: There is no mucosal lesions, there is no thrush, there is no pharyngitis. Neck: Is supple, there are no nodes, or masses or tenderness. Chest: Is clear to auscultation and percussion. There are no rales, rhonchi, wheezes or rubs. Heart: Rate, rhythm is regular. There is no murmur, rub or gallop. Abdomen: Good bowel sounds are present. Abdomen is obese, soft, with nonspecific tenderness anteriorly. There is no CVA tenderness on percussion. There is no organomegaly or masses appreciated. Extremities: Are symmetrical and well perfused. There is no edema, there is no cellulitis, no rash. Neurologic: There are no focal neurological deficits. Cranial nerves II through XII are intact. There are no sensory or motor deficits. Psychiatric: Patients mood is calm and she shows no sign of agitation. Genital: Deferred Rectal: Deferred Lab and Diagnostics Result Diagram: 05/08/1752705/08/17527 Microbiology Blood urine and stool studies are pending. X-Rays, CTs and MRIs PROCEDURE: CT ABDOMEN AND PELVIS WITH CONTRAST ([id number]) INDICATIONS: abd pain TECHNIQUE: After the administration of intravenous contrast, 5 mm thick sections acquired from the diaphragm to the symphysis. 5 mm coronal and sagittal reformats were acquired. For radiation dose reduction, the following was used: automated exposure control, adjustment of mA and/or kV according to patient size. COMPARISON: None. FINDINGS: Image quality: Excellent. ABDOMEN: Lung bases: Lung bases are clear. Heart size is normal. Solid organs: Small indeterminate hepatic hypodensities are present, probably cysts. Liver and spleen are normal in size and enhancement. Gallbladder is normal. Biliary system is non dilated. Pancreas enhances normally. No adrenal nodules. Kidneys demonstrate normal size and enhancement, without hydronephrosis. Peritoneum and bowel: There is colonic wall thickening involving the distal transverse colon and splenic flexure, as well as the proximal descending colon, consistent with colitis. There are colonic diverticula. No evidence for active diverticulitis. Small bowel loops demonstrate normal wall thickness and caliber. No free fluid or air. Nodes and vessels: No retroperitoneal or mesenteric adenopathy by size criteria. Aorta and inferior vena cava are normal in size. Aortic atherosclerosis. Miscellaneous: No ventral hernias. PELVIS: Genitourinary: Bladder wall thickness is normal. Miscellaneous: No inguinal hernias or adenopathy. Bones: No suspicious bony lesions. No vertebral body compression fractures. IMPRESSION: 1. Segmental of thickening of the colon involving the distal transverse colon, splenic flexure and proximal descending colon consistent with colitis. 2. Diverticulosis. No evidence for acute diverticulitis. 3. Small indeterminate hepatic hypodensities are present, probably cysts. Dictated by: Beatrice Bang M.D. on 05/05/2017 at 11:42 Approved by: Beatrice Bang M.D. on 05/05/2017 at 11:50 Assessment & Plan Patient is a 46-year-old female who reportedly injured her back 4 years ago while working at [employer] in the [employer] department. She reportedly filed a Workmen's Compensation claim and was referred to a chiropractor in [place]. The patient states that she has been trying to have surgery approved on her back by Workmen's Compensation for the last 4 years now. Meanwhile she has been receiving for years worth of chiropractic treatments. Earlier this year she was referred to a physician in [place] when turned referred her to an neurological surgeon by the name of Dr. Almendarez. Dr. Almendarez evaluated the patient and obtained approval from workman's comp to perform surgery and the patient's spine in the area of her L4 and L5 vertebral bodies. The patient does not know what type of surgery was performed. She does not know if it was a discectomy or effusion. However, she does state that recent x-rays in the emergency room here showed no hardware involved. Prior to her discharge from [facility] for approximately 3 days patient had nausea and some vomiting. After discharge home her nausea and vomiting continued. The patient thought this might be due to a side effect of her oxycodone pills and she stopped them after taking them for a total of 5 days, 3 in the hospital and 2 at home. However, she continued to have emesis which was light colored green which then became darker and then came went back to light-colored green again. Her encouraged her to go to the hospital, however she felt that the symptoms would pass. Unfortunately for the patient, her symptoms never improved and they only worsened. Today she started having watery diarrhea for the first time and told her that she could not take it anymore is when her called paramedics who brought the patient to [facility] emergency room. The patient was evaluated by Dr. Janes Garzon and was felt to have intractable nausea and vomiting a CT scan of the abdomen and pelvis was ordered which showed segmental thickening of the colon involving the distal transverse colon, splenic flexure and proximal descending colon consistent with colitis. The patient did have diverticulosis but no evidence for acute diverticulitis there were some small indeterminate hepatic hypodensities present which were probable cyst. Due to the colitis the patient was given a liter fluid given Zofran and her white blood cell count was found to be over 25,000 the patient therefore was admitted to the hospital service for further evaluation and treatment. # Gastroenteritis/colitis, present at the time of admission secondary to C. difficile infection. Active with nausea, vomiting and diarrhea which is persisting through last evening and overnight - Infectious disease was consulted and will continue oral vancomycin and discontinue IV Flagyl. - Continue IV hydration. - Continue Zofran and Phenergan ordered to alternate as antiemetics. # Dehydration, present at time of admission. Active and secondary to above. - We will continue IV hydration which will include normal saline with 20 mg of potassium chloride to replete her potassium stores which are low secondary to above nausea and vomiting. - Continue to monitor fluid status and electrolytes closely and replete as needed # Marked leukocytosis, present at the time of admission. Improved - Secondary to infection - Secondary to dehydration # Hypokalemia, presence and admission. Replaced - Potassium added to normal saline - Continue to monitor electrolytes daily. # Hypomagnesemia, present at time of admission. Active - We have replaced - Continue to monitor and abated daily basis due to persistent nausea and vomiting # History tobacco use - Patient recently quit just prior to her surgery 04/29/2017. # Recent spinal surgery in the area of L4-L5 by Dr. Almendarez at the [facility] in [place], [place]. - Patient is unable to tell me what type of surgery she had. - Need for surgery was a result of her work related injury Disposition: Patient will likely be here another 24 hours with continued treatment of the above problems. Appreciate Dr. Cox's time and expertise. We will begin to taper off IV narcotics. Pain Evaluation: Adequate Pain Control GI Prophylaxis: Proton Pump Inhibitor VTE Prophylaxis: Sub-Q Enoxaparin VTE Mechanical Devices: Intermittant Pneumatic CD Resuscitation Status: CPR: Attempt Resuscitation Hua August MD May 08, 2017 22:26
[2017-05-09] MEDS: 0.9% NaCl + KCl 20 mEq/L 1,000 ML IV SCH ×3 (03:00→11:50)
[2017-05-09] MEDS: Vancomycin 250 mg Oral Capsule PO SCH ×3 (03:04→14:43)
--- NOTE | 2017-05-09 04:19 | NUR ---
Reduced Nausea Pt tolerates PO pain medication and vanco with no emesis. Pt appears to be sleeping more comfortably, less coughing, and less urgent trips to bathroom. Pt states diarrhea still present. Pt willing to try APAP for pain managment. NS with 20kcl infuisng through peripheral line with no complaints. Care continues.
[2017-05-09 05:41] VITALS: BP 129/74; PULSE 60; RESP 18; O2SAT 97
[2017-05-09 06:15] LABS: BASOPHILS % (AUTO) 0.5 % (0-3); EOSINOPHILS % (AUTO) 3.6 % (0-5); MONOCYTES % (AUTO) 11.5 % (4-12); Mean Corpuscular Volume 87.2 fL (81-100); NEUTROPHILS % (AUTO) 50.3 % (40-74); Platelet Count 307 bil/L (150-400)
--- NOTE | 2017-05-09 08:19 | NUR ---
Social Work- Brief Note/Readiness for Discharge Data: EMR reviewed. Pt is a 46 year old female admitted 05/05/17 for colitis per H&P. Pt's insurance is [employer] and [employer]. Pt's PCP is ANCA Ocampo. Pt's [facility] is [employer] [phone]. SW met with pt at bedside regarding discharge plan, SW role explained. Pt alert and oriented x3. Pt resides in [place] with her spouse and family where she is independent at baseline. Pt [place] DME at base but has a fww at home. Pt declined information about DPOA. Pt to discharge home with spouse via POV, no discharge needs anticipated at this time. SW will continue to follow. Assessment: Pt who is independent at baseline. Plan: Pt to discharge home with spouse via POV, no discharge needs anticipated at this time. SW will continue to follow. Emily Walton MSW
[2017-05-09] MEDS: Pantoprazole 40 mg ER24 Tablet PO SCH (09:05)
--- NOTE | 2017-05-09 12:09 | PCM.DIMED ---
Discharge Instructions Date of Service May 09, 2017 Dates of Hospitalization May 05, 2017 at 13:06 Discharge Diagnosis Discharge Diagnosis C. difficile colitis Diet Discharge Diet: No restrictions Activity Discharge Activity: No restrictions Call your provider Call your provider for: Fever or Chills, Shortness of breath, Bleeding, Chest pain, Vomitting, Excessive diarrhea, Weakness (unilateral) Patient Instructions Follow-up Provider: Ronna Grant Follow-up with PCP in: 1 week Provider: Martin Cox MD Follow-up in: 2 weeks Hua August MD May 09, 2017 12:09
--- NOTE | 2017-05-09 12:11 | NUR ---
Social Work- Discharge Data: EMR reviewed. Pt is on day 4 of hospitalization for colitis per H&P. Pt is medically stable for discharge. Pt to discharge today. Pt is independent at baseline. Pt to discharge home with spouse via POV, no discharge needs at this time. Assessment: Pt who is independent at baseline. Plan: Pt to discharge home with spouse via POV, no discharge needs identified. SIERRA Mccoy
[2017-05-09] MEDS ORDERED: Lactobacillus Acidophilus PO (12:14)
[2017-05-09] MEDS ORDERED: VANC250C3 PO (12:14)
--- NOTE | 2017-05-09 15:07 | NUR ---
Discharge: Pt discharged home with , Emeka, and all belongings at 1500 with prescriptions. Gave medication and follow up appointment instructions. Pt understood importance of finishing antibiotic treatment and had no other questions. Pt states she has a follow up appointment with the who performed her laminectomy as well.
--- NOTE | 2017-05-10 00:17 | PCM.DC.MED ---
Discharge Summary Date of Service May 09, 2017 Dates of Hospitalization Date of Hospital Admission May 05, 2017 at 13:06 Date of Discharge: May 09, 2017 Providers: Admitting Physician: Hua August MD Primary Care Physician: Ronna Grant Attending Physician: Hua August MD Diagnosis at Time of Discharge Diagnosis at Time of Discharge C. difficile colitis Consultations Dr. Martin Cox of infectious disease. Procedures XRay, CTs & MRIs PROCEDURE: CT ABDOMEN AND PELVIS WITH CONTRAST ([id number]) INDICATIONS: abd pain TECHNIQUE: After the administration of intravenous contrast, 5 mm thick sections acquired from the diaphragm to the symphysis. 5 mm coronal and sagittal reformats were acquired. For radiation dose reduction, the following was used: automated exposure control, adjustment of mA and/or kV according to patient size. COMPARISON: None. FINDINGS: Image quality: Excellent. ABDOMEN: Lung bases: Lung bases are clear. Heart size is normal. Solid organs: Small indeterminate hepatic hypodensities are present, probably cysts. Liver and spleen are normal in size and enhancement. Gallbladder is normal. Biliary system is non dilated. Pancreas enhances normally. No adrenal nodules. Kidneys demonstrate normal size and enhancement, without hydronephrosis. Peritoneum and bowel: There is colonic wall thickening involving the distal transverse colon and splenic flexure, as well as the proximal descending colon, consistent with colitis. There are colonic diverticula. No evidence for active diverticulitis. Small bowel loops demonstrate normal wall thickness and caliber. No free fluid or air. Nodes and vessels: No retroperitoneal or mesenteric adenopathy by size criteria. Aorta and inferior vena cava are normal in size. Aortic atherosclerosis. Miscellaneous: No ventral hernias. PELVIS: Genitourinary: Bladder wall thickness is normal. Miscellaneous: No inguinal hernias or adenopathy. Bones: No suspicious bony lesions. No vertebral body compression fractures. IMPRESSION: 1. Segmental of thickening of the colon involving the distal transverse colon, splenic flexure and proximal descending colon consistent with colitis. 2. Diverticulosis. No evidence for acute diverticulitis. 3. Small indeterminate hepatic hypodensities are present, probably cysts. Dictated by: Beatrice Bang M.D. on 05/05/2017 at 11:42 Approved by: Beatrice Bang M.D. on 05/05/2017 at 11:50 Brief History Patient is a 46-year-old female who reportedly injured her back 4 years ago while working at [employer] in the [employer] department. She reportedly filed a Workmen's Compensation claim and was referred to a chiropractor in [place]. The patient states that she has been trying to have surgery approved on her back by Workmen's Compensation for the last 4 years now. Meanwhile she has been receiving for years worth of chiropractic treatments. Earlier this year she was referred to a physician in [place] when turned referred her to an neurological surgeon by the name of Dr. Almendarez. Dr. Almendarez evaluated the patient and obtained approval from workman's comp to perform surgery and the patient's spine in the area of her L4 and L5 vertebral bodies. The patient does not know what type of surgery was performed. She does not know if it was a discectomy or effusion. However, she does state that recent x-rays in the emergency room here showed no hardware involved. Prior to her discharge from [facility] for approximately 3 days patient had nausea and some vomiting. After discharge home her nausea and vomiting continued. The patient thought this might be due to a side effect of her oxycodone pills and she stopped them after taking them for a total of 5 days, 3 in the hospital and 2 at home. However, she continued to have emesis which was light colored green which then became darker and then came went back to light-colored green again. Her encouraged her to go to the hospital, however she felt that the symptoms would pass. Unfortunately for the patient, her symptoms never improved and they only worsened. Today she started having watery diarrhea for the first time and told her that she could not take it anymore is when her called paramedics who brought the patient to [facility] emergency room. The patient was evaluated by Dr. Janes Garzon and was felt to have intractable nausea and vomiting a CT scan of the abdomen and pelvis was ordered which showed segmental thickening of the colon involving the distal transverse colon, splenic flexure and proximal descending colon consistent with colitis. The patient did have diverticulosis but no evidence for acute diverticulitis there were some small indeterminate hepatic hypodensities present which were probable cyst. Due to the colitis the patient was given a liter fluid given Zofran and her white blood cell count was found to be over 25,000 the patient therefore was admitted to the hospital service for further evaluation and treatment.] Hospital Course Patient is a 46-year-old female who reportedly injured her back 4 years ago while working at [employer] in the [employer] department. She reportedly filed a Workmen's Compensation claim and was referred to a chiropractor in [place]. The patient states that she has been trying to have surgery approved on her back by Workmen's Compensation for the last 4 years now. Meanwhile she has been receiving for years worth of chiropractic treatments. Earlier this year she was referred to a physician in [place] when turned referred her to an neurological surgeon by the name of Dr. Almendarez. Dr. Almendarez evaluated the patient and obtained approval from workman's comp to perform surgery and the patient's spine in the area of her L4 and L5 vertebral bodies. The patient does not know what type of surgery was performed. She does not know if it was a discectomy or effusion. However, she does state that recent x-rays in the emergency room here showed no hardware involved. Prior to her discharge from [facility] for approximately 3 days patient had nausea and some vomiting. After discharge home her nausea and vomiting continued. The patient thought this might be due to a side effect of her oxycodone pills and she stopped them after taking them for a total of 5 days, 3 in the hospital and 2 at home. However, she continued to have emesis which was light colored green which then became darker and then came went back to light-colored green again. Her encouraged her to go to the hospital, however she felt that the symptoms would pass. Unfortunately for the patient, her symptoms never improved and they only worsened. Today she started having watery diarrhea for the first time and told her that she could not take it anymore is when her called paramedics who brought the patient to [facility] emergency room. The patient was evaluated by Dr. Janes Garzon and was felt to have intractable nausea and vomiting a CT scan of the abdomen and pelvis was ordered which showed segmental thickening of the colon involving the distal transverse colon, splenic flexure and proximal descending colon consistent with colitis. The patient did have diverticulosis but no evidence for acute diverticulitis there were some small indeterminate hepatic hypodensities present which were probable cyst. Due to the colitis the patient was given a liter fluid given Zofran and her white blood cell count was found to be over 25,000 the patient therefore was admitted to the hospital service for further evaluation and treatment. # Gastroenteritis/colitis, present at the time of admission secondary to C. difficile infection. Active with nausea, vomiting and diarrhea which is persisting through last evening and overnight - Infectious disease was consulted and will continue oral vancomycin and discontinue IV Flagyl. - Continue IV hydration. - Continue Zofran and Phenergan ordered to alternate as antiemetics. # Dehydration, present at time of admission. Active and secondary to above. - We will continue IV hydration which will include normal saline with 20 mg of potassium chloride to replete her potassium stores which are low secondary to above nausea and vomiting. - Continue to monitor fluid status and electrolytes closely and replete as needed # Marked leukocytosis, present at the time of admission. Improved - Secondary to infection - Secondary to dehydration # Hypokalemia, presence and admission. Replaced - Potassium added to normal saline - Continue to monitor electrolytes daily. # Hypomagnesemia, present at time of admission. Active - We have replaced - Continue to monitor and abated daily basis due to persistent nausea and vomiting # History tobacco use - Patient recently quit just prior to her surgery 04/29/2017. # Recent spinal surgery in the area of L4-L5 by Dr. Almendarez at the [facility] in [place], [place]. - Patient is unable to tell me what type of surgery she had. - Need for surgery was a result of her work related injury Disposition: The patient is feeling better and anxious to go home. She is stable for discharge and will be discharged home today. Exam Vital Signs (Last) Date Time Temp Pulse Resp B/P Pulse Ox O2 Delivery O2 Flow Rate FiO2 05/09/17 05:41 36.4 60 18 129/74 97 Room Air Exam General: Patient is in no apparent distress. HEENT: Head is atraumatic and normocephalic. Eyes: Pupils are equally round and reactive to light and accommodation. Extraocular muscles are intact. Sclera are white, anicteric. Subconjunctival mucosa is pink. Ears and nose are unremarkable. Oropharynx: There is no mucosal lesions, there is no thrush, there is no pharyngitis. Neck: Is supple, there are no nodes, or masses or tenderness. Chest: Is clear to auscultation and percussion. There are no rales, rhonchi, wheezes or rubs. Heart: Rate, rhythm is regular. There is no murmur, rub or gallop. Abdomen: Good bowel sounds are present. Abdomen is obese, soft, with minimal to no tenderness anteriorly today. There is no CVA tenderness on percussion. There is no organomegaly or masses appreciated. Extremities: Are symmetrical and well perfused. There is no edema, there is no cellulitis, no rash. Neurologic: There are no focal neurological deficits. Cranial nerves II through XII are intact. There are no sensory or motor deficits. Psychiatric: Patients mood is calm and she shows no sign of agitation. Genital: Deferred Rectal: Deferred Test 05/05/17 11:13 05/05/17 16:15 05/06/17 05:25 05/09/17 05:36 Lactic Acid Level 1.3mmol/L (0.4-2.0) Urine Color Yellow (YELLOW) Urine Appearance Clear (CLEAR,HAZY) Urine pH 8.5 (5.0-8.0) Urine Specific [place] 1.010 (1.003-1.035) Urine Protein 30mg/dL (NEG,TRACE) Urine Glucose (UA) Negativemg/dL (NEGATIVE) Urine Ketones Tracemg/dL (NEGATIVE) Urine Occult Blood Small (NEGATIVE) Urine Nitrite Negative (NEGATIVE) Urine Bilirubin Negative (NEGATIVE) Urine Urobilinogen Normalmg/dL (NORMAL) Urine Leukocyte Esterase Negative (NEGATIVE) Urine RBC 3-10/hpf (0-2) Urine WBC 6-10/hpf (0-5) Urine Epithelial Cells Many/hpf (NONE-MOD) Urine Crystals None seen (NONE SEEN) Urine Bacteria Few/hpf (NONE-FEW) Urine Hyaline Casts None/lpf (NONE) Urine Granular Casts None seen (NONE SEEN) Urine Waxy Casts None seen (NONE SEEN) Urine Red Blood Cell Casts None seen (NONE SEEN) Urine White Blood Cell Casts None seen (NONE SEEN) Urine Mucus None seen (None Seen) Urine Trichomonas None seen (NONE SEEN) Urine Yeast None (NONE SEEN) Urinalysis Comment None Urine Culture Reflexed Indicated Urine Opiates Screen Positive Urine Methadone Screen Negative Urine Barbiturates Screen Negative Urine Amphetamines Screen Negative Urine Benzodiazepines Screen Negative Urine Cocaine Metabolite Screen Negative Urine Cannabinoids Screen Positive Lipase 17U/L (13-60) Thyroid Stimulating Hormone (TSH) 0.355uIU/mL (0.450-4.500) White Blood Count 7.7th/mm3 (3.8-10.1) Red Blood Count 3.28mil/mm3 (3.90-5.20) Hemoglobin 9.5g/dL (12.0-15.6) Hematocrit 28.6% (35.0-46.0) Mean Corpuscular Volume 87.2fL (81-100) Mean Corpuscular Hemoglobin 29.0pg (27.0-35.0) Mean Corpuscular Hemoglobin Concent 33.2% (32.0-37.0) Red Cell Distribution Width 13.5% (12.3-15.4) Platelet Count 307bil/L (150-400) Neutrophils (%) (Auto) 50.3% (40-74) Lymphocytes (%) (Auto) 33.6% (14-46) Monocytes (%) (Auto) 11.5% (4-12) Eosinophils (%) (Auto) 3.6% (0-5) Basophils (%) (Auto) 0.5% (0-3) Sodium Level 143mEq/L (134-144) Potassium Level 4.5mEq/L (3.5-5.2) Chloride Level 108mEq/L (97-108) Carbon Dioxide Level 25mmol/L (18-29) Blood Urea Nitrogen 6mg/dL (6-24) Creatinine 0.51mg/dL (0.57-1.00) Estimat Glomerular Filtration Rate 184mL/min (>59) Glucose Level 99mg/dL (60-99) Calcium Level 8.0mg/dL (8.5-10.1) Magnesium Level 2.0mg/dL (1.6-2.6) Total Bilirubin 0.2mg/dL (0.0-1.2) Aspartate Amino Transf (AST/SGOT) 50U/L (0-50) Alanine Aminotransferase (ALT/SGPT) 33U/L (0-32) Alkaline Phosphatase 48U/L (25-150) Total Protein 5.0g/dL (6.4-8.4) Albumin 3.0g/dL (3.4-5.0) Microbiology Results Blood urine and stool studies are pending. Discharge Medications Discharge Medications ([Lactobacillus Acidophilus]) 1 TABLET TABLET 2 TABLET PO PCHS Prescribed by: MAYRA AUGSUT MD Vancomycin (Vancomycin) 250 Mg Capsule 250 MG PO Q6 Prescribed by: MAYRA AUGUST MD Followup Plan Disposition: Patient is being discharged home. Discharge Diet: No restrictions Discharge Activity: No restrictions Follow-up Provider: Ronna Grant Follow-up with PCP in: 1 week Provider: Martin Cox MD Follow-up in: 2 weeks Time spent Time spent on discharging this patient was greater than 35 minutes, over half of which was involved in counseling and coordination of care. Hua August MD May 10, 2017 00:17
== END 2017-05-09 15:03 | disposition home or self-care (01) | DRG 373 ==
LOC: SED 10:06 → OSC 13:06
PROVIDERS: ADMIT Internal Medicine Infectious Disease; ATTEND Internal Medicine Infectious Disease
DX: A04.7 Enterocolitis due to Clostridium difficile (principal); E83.42 Hypomagnesemia; E86.0 Dehydration; E87.6 Hypokalemia; F17.200 Nicotine dependence, unspecified, uncomplicated; Z98.890 Other specified postprocedural states